=== PATIENT | female | born 1975 | race Caucasian/White ===

== ENCOUNTER → 2016-09-30 | Outpatient (CLI) | payer BC | LOC: COL.RAD 12:42 | DX: E06.3 Autoimmune thyroiditis (principal) ==

== ENCOUNTER → 2018-06-02 | Outpatient (CLI) | payer BC | LOC: MC.RAD 10:36 | DX: N63.42 Unspecified lump in left breast, subareolar (principal); N64.4 Mastodynia | CPT/HCPCS: G0279 ==

== ENCOUNTER → 2020-09-03 | Outpatient (CLI) | payer OTHER | LOC: MC.RAD 16:28 | DX: Z12.31 Encounter for screening mammogram for malignant neoplasm of breast (principal); N63.10 Unspecified lump in the right breast, unspecified quadrant ==

== ENCOUNTER → 2020-09-09 | Outpatient (CLI) | payer OTHER | LOC: MC.RAD 12:52 | DX: N63.10 Unspecified lump in the right breast, unspecified quadrant (principal) ==

== ENCOUNTER → 2020-09-20 | Outpatient (CLI) | payer OTHER | LOC: MC.RAD 12:36 | DX: N63.10 Unspecified lump in the right breast, unspecified quadrant (principal) ==

== ENCOUNTER → 2020-09-25 | Outpatient (CLI) | payer OTHER | LOC: COL.RAD 08:59 | DX: K76.0 Fatty (change of) liver, not elsewhere classified (principal) ==

== ENCOUNTER 2021-03-18 03:46 | Emergency (ER) | payer BC ==
[~2021-03-18] VITALS: Ht 149.9 cm; Wt 70.0 kg
[2021-03-18 03:54] VITALS: TEMP 98.6
[2021-03-18 04:21] LABS: BASO # 0.1 K/mm3 (0.0-0.2); BASO % 0.5 % (0.0-2.0); EOS # 0.2 K/mm3 (0.0-0.7); EOS % 1.5 % (0-4.0); GRAN # 5.7 K/mm3 (1.4-6.5); GRAN % 57.2 % (42.2-75.2); HEMATOCRIT 39.4 % (37.0-47.0); HEMOGLOBIN 13.6 g/dl (12.5-16.0); LYMPH # 3.5 K/mm3 (1.2-3.4); LYMPH % 34.6 % (20.0-51.0); MEAN CELL VOLUME 86 fl (80.0-100.0); MEAN CORPUSCULAR HEMOGLOBIN 30 pg (27.0-31.0); MEAN CORPUSCULAR HGB CONC 35 g/dl (33.0-37.0); MEAN PLATELET VOLUME 10.5 fl (7.4-10.4); MONO # 0.6 K/mm3 (0.1-0.6); PLATELET COUNT 306 K/mm3 (130-400); RED BLOOD COUNT 4.58 M/mm3 (4.10-5.30); REDCELL DISTRIBUTION WIDTH-CV 13.1 % (11.5-14.5)
[2021-03-18 04:42] LABS: ALANINE AMINOTRANSFERASE 30 U/L (0-55); ALBUMIN 4.1 gm/dL (3.5-5.0); ALKALINE PHOSPHATASE 54 U/L (40-150); ANION GAP 10 mmol/L (7-16); AST,SGOT 37 U/L (5-34); BILIRUBIN,TOTAL 0.4 mg/dL (0.2-1.2); BLOOD UREA NITROGEN 12 mg/dL (7-19); CALCIUM 9.3 mg/dL (8.4-10.2); CARBON DIOXIDE 21 mmol/L (22-29); CHLORIDE 109 mmol/L (98-107); CREATININE, serum 0.71 mg/dL (0.57-1.11); GLUCOSE 90 mg/dL (70-99); POTASSIUM 4.8 mmol/L (3.5-4.5); SODIUM 140 mmol/L (136-145); TOTAL PROTEIN 8.4 gm/dL (6.2-8.1)
[2021-03-18 04:50] LABS: TROPONIN-I < 0.010 ng/mL (0.00-0.033)
[2021-03-18 05:15] VITALS: BP 103/67; PULSE 60
== END 2021-03-18 05:15 | disposition home or self-care (01) ==
LOC: COL.ER 03:46
PROVIDERS: Student in an Organized Health Care Education/Training Program
DX: R07.9 Chest pain, unspecified (principal)

== ENCOUNTER → 2021-10-13 | Outpatient (CLI) | payer BC | LOC: MC.RAD 07:11 | DX: Z12.31 Encounter for screening mammogram for malignant neoplasm of breast (principal); N63.20 Unspecified lump in the left breast, unspecified quadrant ==

== ENCOUNTER → 2021-10-17 | Outpatient (CLI) | payer BC | LOC: MC.RAD 09:55 | DX: N60.02 Solitary cyst of left breast (principal) ==

== ENCOUNTER → 2021-10-20 | Outpatient (CLI) | payer BC | LOC: COL.RAD 10:31 | DX: R10.11 Right upper quadrant pain (principal); Z90.49 Acquired absence of other specified parts of digestive tract ==

== ENCOUNTER → 2022-06-08 | Outpatient (CLI) | payer BC | LOC: MC.RAD 10:16 | DX: N63.22 Unspecified lump in the left breast, upper inner quadrant (principal) ==

== ENCOUNTER 2023-12-17 05:45 | Day surgery (SDC) | payer OTHER ==
[~2023-12-17] VITALS: Ht 152.4 cm; Wt 67.9 kg
[~2023-12-17 05:45] MED LIST: LR 1,000 ML IV SCH; Ondansetron 4 MG/2 ML VIAL IV PRN
[2023-12-17] MEDS ORDERED: LEVOXYL0.088 MG PO (06:11)
[2023-12-17] MEDS ORDERED: EPA FISH OIL1 SGL PO (06:11)
[2023-12-17] MEDS ORDERED: [UNRECOGNIZED DRUG - OTHER] PO (06:12)
[2023-12-17] MEDS ORDERED: ZYRTEC 10MG10 MG PO (06:12)
[2023-12-17 06:13] VITALS: BP 106/69; PULSE 71; TEMP 96.4
--- NOTE | 2023-12-17 06:27 | NUR ---
Patient admitted to [facility], [place] 3. Alert, oriented x4. test waiver signed. Reports prep effective- clear liquid stools. Oriented to room, bathrooms, and call light. Admission assessments completed. Allergies, pharmacy, and medications confirmed. 20G IV inserted into right wrist. LR infusing without complications. Call light within reach.
[2023-12-17] MEDS ORDERED: Lidocaine PF 2% (20 MG/ML) 5 ML VIAL ONE (07:28)
[2023-12-17] MEDS ORDERED: Succinylcholine PF 200 MG/10 ML SYRINGE IV ONE (07:29)
[2023-12-17 08:15] VITALS: BP 119/73; PULSE 74; TEMP 97.1
[2023-12-17 08:30] VITALS: BP 118/76; PULSE 68
[2023-12-17 08:45] VITALS: BP 116/74; PULSE 68
--- NOTE | 2023-12-17 08:50 | NUR ---
0815 RETURNS TO ROOM 3 PER CART. AWAKE, ALERT. RESP UNLABORED. AMBULATES TO RECLINER WITH STANDBY ASSIST. DENIES NAUSEA OR ABD PAIN. VITAL SIGNS OBTAINED. CALL LIGHT AT SIDE. HERE. 0830 TOLERATES PO WATER AND SALTINE CRACKERS WITHOUT NAUSEA. 0832 DISCHARGE INSTRUCTIONS REVIEWED. PATINT VERBALIZES UNDERSTSNDING. COPY PROVIDED IN DISCHARGE FOLDER. 0838 DR. IBANEZ HERE TO VISIT WITH PATIENT 0845 DRESSES SELF
== END 2023-12-17 08:50 | disposition home or self-care (01) ==
LOC: SDCO 05:45
DX: Z12.11 Encounter for screening for malignant neoplasm of colon (principal); K62.1 Rectal polyp
CPT/HCPCS: J2704; J7120